=== PATIENT | female | born 1975 | race Caucasian/White ===

== ENCOUNTER 2023-12-11 16:55 | Observation (INO) ==
[2023-12-11 19:16] LABS: ABS Basophils 0.1 10^3/uL (0.0-0.1); ABS Monocytes 0.6 10^3/uL (0.0-0.9); ABS Neutrophils 8.7 10^3/uL (1.5-7.6); Eosinophil % 0.1 %; Hematocrit 37.6 % (35-45); Hemoglobin 12.9 g/dL (11.5-14.3); Lymphocyte % 9.8 %; Mean Corpuscular Hemoglobin 28.8 pg (27-33); Mean Corpuscular Hgb Conc 34.4 g/dL (31-36); Mean Corpuscular Volume 83.9 fL (80-97); Mean Platelet Volume 9.2 fL (7.5-11.2); Platelet Count 393 10^3/uL (150-450); Red Blood Count 4.49 10^6/uL (3.63-4.92); Red Cell Distribution Width 14.9 % (12-17); White Blood Count 10.3 10^3/uL (3.8-11.8)
[2023-12-11] MEDS ORDERED: Ondansetron ODT 4 mg TAB 4 MG TAB ONE (19:41)
[2023-12-11] MEDS: Ondansetron ODT 4 mg TAB 4 MG TAB PO ONE (19:52)
[2023-12-11 19:58] LABS: Albumin 4.8 g/dL (3.2-5.2); Albumin/Globulin Ratio 2.1 (1-3); Calcium 10.1 mg/dL (8.6-10.3); Creatinine, Serum 0.71 mg/dL (0.51-0.95); Globulin 2.3 g/dL (2-4); Magnesium 1.8 mg/dL (1.9-2.7); Potassium 2.9 mmol/L (3.5-5.0); Total Bilirubin 0.6 mg/dL (0.2-1.0); Total Protein 7.1 g/dL (6.4-8.9); eGFR CKD-EPI 103.5 (>60)
[2023-12-11] MEDS: Lactated Ringers 1000 ml BAG 1,000 ML IV ONE ×2 (20:55→22:01)
[2023-12-11] MEDS: Metoclopramide 5 MG/ML VIAL (10 mg) IV ONE (22:01)
[2023-12-11] MEDS: Acetaminophen IV 1 GM/100ML 1,000 MG/100 ML BAG IV ONE (22:01)
[2023-12-11] MEDS: Potassium Chlor 20 meq TAB.ER PO ONE (22:13)
[2023-12-11] MEDS: Potassium EFFERVES 25 meq TAB PO ONE (22:47)
[2023-12-11] MEDS: KCL 20 MEQ/100 ML IVPREMIX 20 MEQ/100 ML BAG IV SCH (23:19)
[2023-12-11] MEDS: Prochlorperazine 5 mg/ml 2 ml VIAL (10 mg) IV ONE (23:19)
[2023-12-11] MEDS: NS 0.9% 1000 ml BAG 1,000 ML IV ONE (23:19)
[2023-12-12] MEDS: Pantoprazole VIAL 40 MG VIAL IV ONE (04:23)
[2023-12-12] MEDS: Magnesium Sulfate 2 gm BAG 2 GM/50 ML BAG IVPB ONE (06:13)
[2023-12-12 07:44] LABS: Calcium 8.6 mg/dL (8.6-10.3); Creatinine, Serum 0.6 mg/dL (0.51-0.95); Potassium 3.1 mmol/L (3.5-5.0); eGFR CKD-EPI 109.3 (>60)
[2023-12-12 11:28] VITALS: BP 131/87
== END 2023-12-12 11:28 | disposition home or self-care (01) ==
LOC: EDHOLD 16:55 → ED 16:55 → SUATTDRO 12-12 04:50 → EDHOLD 12-12 11:27
PROVIDERS: ADMIT Internal Medicine; ATTEND Internal Medicine